=== PATIENT | male | born 1995 | race Caucasian/White ===

== ENCOUNTER 2017-01-27 22:31 | Emergency (ER) | payer BC ==
[2017-01-28 01:03] VITALS: BP 135/73
[2017-01-28] MEDS ORDERED: Ketorolac INJ* 60 MG/2 ML VIAL IM ONE (01:16)
--- NOTE | 2017-01-28 20:48 | ED ---
Michael Harding Alok, scribed for Alex Carmona MD on 01/28/17 at 0133 . Headache - HPI Summary HPI Summary: 21M presents to the ED for a temporal head pressure ongoing for the last week. He states his AV[place]DA[place]O comes and goes and is not usually prone to them. Pt states his [place] changes with position depending on which side he is laying on. Pt tried taking Claritin and Advil with no effect. Pt states that about a week ago he had a cold and has had sinus congestion with yellow rhinorrhea since. Pt denies cough, fever, chills, or diaphoresis. Pt takes Zoloft for anxiety. Pt smokes tobacco and drinks ETOH occasionally. - History Of Current Complaint Chief Complaint: EDHeadache Stated Complaint: HEAD PRESSURE Time Seen by Provider: 01/28/17 01:02 Hx Obtained From: Patient Onset/Duration: Started days ago, Still Present Initially Headache Was: Moderate Currently Pain Is: Moderate Timing: Intermittent, Lasting: Character: Pressure Location of Headache: Temporal Allevating Factors: Nothing Associated Signs And Symptoms: Sinus Pressure, Other (Noted In Comments) - sinus congestion - Allergies/Home Medications Allergies/Adverse Reactions: Allergies Allergy/AdvReac Type Severity Reaction Status Date / Time No Known Allergies Allergy Verified 01/27/17 22:46 PMH/Surg Hx/FS Hx/Imm Hx Psychiatric History: Reports: Hx Anxiety - Immunization History Date of Tetanus Vaccine: utd Date of Influenza Vaccine: utd Infectious Disease History: No Infectious Disease History: Denies: Traveled Outside the [place] in Last 30 Days - Family History Known Family History: Negative: Hypertension - Social History Occupation: Student Alcohol Use: Weekly Substance Use Type: Reports: None, Marijuana Substance Use Comment - Amount & Last Used: daily use Smoking Status (MU): Current Some Day Smoker Review of Systems Negative: Fever, Chills Negative: Erythema Positive: Nasal Discharge, Other - sinus congestion. Negative: Sore Throat Negative: Chest Pain Negative: Shortness Of Breath, Cough Negative: Abdominal Pain, Vomiting, Nausea Negative: dysuria, hematuria Negative: Myalgia, Edema Negative: Rash Neurological: Other - Negative: Dizziness All Other Systems Reviewed And Are Negative: Yes Physical Exam - Summary Physical Exam Summary: Constitutional: Well-developed, Well-nourished, Alert. (-) Distressed Skin: Warm, Dry HENT: Normocephalic; Atraumatic Eyes: Conjunctiva normal Neck: Musculoskeletal ROM normal neck. (-) JVD, (-) Stridor, (-) Tracheal deviation Cardio: Rhythm regular, rate normal, Heart sounds normal; Intact distal pulses; The pedal pulses are 2+ and symmetric. Radial pulses are 2+ and symmetric. (-) Murmur Pulmonary/Chest wall: Effort normal. (-) Respiratory distress, (-) Wheezes, (-) Rales Abd: Soft, (-) Tenderness, (-) Distension, (-) Guarding, (-) Rebound Musculoskeletal: (-) Edema Lymph: (-) Cervical adenopathy Neuro: Alert, Oriented x3 Psych: Mood and affect Normal Triage Information Reviewed: Yes Vital Signs On Initial Exam: Initial Vitals Temp Pulse Resp BP Pulse Ox 99.6 F 108 16 148/78 98 01/27/17 22:40 01/27/17 22:40 01/27/17 22:40 01/27/17 22:40 01/27/17 22:40 Vital Signs Reviewed: Yes - [place] Coma Scale Coma Scale Total: 15 Diagnostics - Vital Signs Vital Signs Temp Pulse Resp BP Pulse Ox 01/28/17 00:56 98.9 F 85 16 135/73 99 01/28/17 00:00 99.0 F 85 16 141/74 100 01/27/17 22:40 99.6 F 108 16 148/78 98 - Laboratory Lab Statement: Any lab studies that have been ordered have been reviewed, and results considered in the medical decision making process. Headache Course/Dx - Course Course Of Treatment: Recommended Neproxen, Sudafed, and netti pot - Diagnoses Provider Diagnoses: Sinus headache Discharge - Discharge Plan Condition: Stable Disposition: HOME The documentation as recorded by the Michael vargas Alok accurately reflects the service I personally performed and the decisions made by , Alex Carmona MD.
== END 2017-01-28 01:48 | disposition home or self-care (01) ==
LOC: ED 22:31
DX: R51 Headache (principal); R09.81 Nasal congestion; Z72.0 Tobacco use
CPT/HCPCS: 96372; 99282; J1885